=== PATIENT | female | born 1940 | race Caucasian/White ===

== ENCOUNTER 2025-03-22 12:30 | Inpatient (IN) | payer MEDICARE, OTHER ==
[~2025-03-22] VITALS: Ht 162.6 cm; Wt 56.2 kg
[2025-03-22] MEDS ORDERED: NA P133E RC (12:58)
[2025-03-22] MEDS ORDERED: SENN8.6T19 PO (12:58)
[2025-03-22] MEDS ORDERED: DOCU100T2 PO (12:58)
[2025-03-22] MEDS ORDERED: HEPA500034 SQ (12:58)
[2025-03-22] MEDS ORDERED: VALP250C3 PO (12:58)
[2025-03-22] MEDS ORDERED: ATOR20TA PO (12:58)
[2025-03-22] MEDS ORDERED: CARB1TAB33 PO (12:58)
[2025-03-22] MEDS ORDERED: MAGN400T52 PO (12:58)
[2025-03-22] MEDS ORDERED: BISA10SU61 RC (12:58)
[2025-03-22] MEDS ORDERED: POLY17PO4 PO (12:58)
[2025-03-22] MEDS ORDERED: MAGN400O6 PO (12:58)
[2025-03-22] MEDS ORDERED: TRAZ-182 PO (12:58)
[2025-03-22] MEDS ORDERED: ALPR0.255 PO (12:58)
[2025-03-22] MEDS ORDERED: HYDR-4209 PO (12:58)
[2025-03-22] MEDS ORDERED: LIDO1ADH82 TP (12:58)
[2025-03-22] MEDS ORDERED: AMLO-212 PO (12:58)
[2025-03-22] MEDS ORDERED: ACET-2154 PO (12:58)
[2025-03-22] MEDS ORDERED: MELA10TA PO (12:58)
[2025-03-22 13:40] LABS: PLATELET COUNT (AUTO) 503 K/uL (179-408); RED BLOOD CELL COUNT(AUTO) 4.25 MIL/uL (3.63-4.92); RED CELL DISTRIBUTION WIDTH 13.6 % (12.3-17.7); WHITE BLOOD COUNT (AUTO) 8.5 K/uL (3.8-11.8)
[2025-03-22 13:56] LABS: ASPARTATE AMINOTRANSFERASE 33 U/L (15-37); CREATININE 0.6 mg/dL (0.6-1.3); SODIUM SERUM 141 mmol/L (136-145); TOTAL PROTEIN, SERUM 6.7 g/dL (6.4-8.2); UREA NITROGEN, BLOOD 15 mg/dL (7-18)
[2025-03-22 14:04] LABS: ETHANOL < 3 MG/DL (0-10)
[2025-03-22 14:29] LABS: *BILIRUBIN,URIN NEGATIVE (NEGATIVE); *CLARITY,URINE SLIGHTLY CLOUDY (CLEAR); *COLOR,URINE YELLOW (YELLOW); *KETONES,URINE NEGATIVE (NEGATIVE); *PROTEIN,URINE NEGATIVE (NEGATIVE); *UROBILINOGEN,URINE 0.2 E.U./dl (NORMAL); LEUKOCYTE ESTERASE ,URINE 2+ (NEGATIVE); NITRITE, URINE NEGATIVE (NEGATIVE); UGLUCOSE NEGATIVE (NEGATIVE)
[2025-03-22 14:31] LABS: *BLOOD, URINE TRACE (NEGATIVE); SQUAMOUS EPITHELIAL CELL,UR FEW /HPF (NONE SEEN); URINE AMORPHOUS URATE FEW /HPF
[2025-03-22 14:46] LABS: *AMPHETAMINE, URINE NEGATIVE (NEGATIVE); *BARBITURATE, URINE NEGATIVE (NEGATIVE); *BENZODIAZEPINE, URINE NEGATIVE (NEGATIVE); *CANNABINOID, URINE NEGATIVE (NEGATIVE); *COCCAINE, URINE NEGATIVE (NEGATIVE); *OPIATE, URINE POSITIVE (NEGATIVE); *PHENCYCLIDINE SCREEN,URINE NEGATIVE (NEGATIVE); FENTANYL, URINE NEGATIVE (NEGATIVE)
[2025-03-22] MEDS ORDERED: CEFTRIAXONE /D5W 50ML IVPB **ER PYXIS IV ONE (15:17)
[2025-03-22 16:30] VITALS: BP 119/58
[2025-03-22] MEDS ORDERED: ONDANSETRON 4 MG/2 ML VIAL IV PRN (17:15)
[2025-03-22] MEDS ORDERED: FLEET ENEMA 133 ML BOTTLE RC PRN (17:15)
[2025-03-22] MEDS ORDERED: ACETAMINOPHEN 325 MG TABLET-SA PATIENTS-PAIN ONLY PO PRN (17:15)
[2025-03-22] MEDS ORDERED: MAGNESIUM HYDROXIDE 30 ML LIQUID UDC PO PRN (17:15)
[2025-03-22] MEDS ORDERED: SENNOSIDES 1 TABLET PO PRN (17:15)
[2025-03-22] MEDS ORDERED: HYDROCODONE/APAP 5-325MG TABLET PO PRN (17:15)
[2025-03-22 18:38] VITALS: BP 137/52; TEMP 97.8; O2SAT 97
[2025-03-22] MEDS: IV NS 1000 ML 1,000 ML IV PRN (19:03)
[2025-03-22 19:25] VITALS: BP 118/45; TEMP 98; O2SAT 98
[2025-03-22] MEDS: ATORVASTATIN 20 MG TABLET PO SCH (20:52)
[2025-03-22] MEDS: HEPARIN SODIUM,PORCINE 5,000 UNITS/ML VIAL SQ SCH (20:56)
[2025-03-22] MEDS: TRAZODONE 50 MG TABLET PO PRN (21:01)
[2025-03-23 06:09] VITALS: BP 135/48; TEMP 97.5; O2SAT 98
[2025-03-23] MEDS: PANTOPRAZOLE SODIUM 40 MG TABLET.DR PO SCH (06:36)
[2025-03-23 07:15] LABS: PLATELET COUNT (AUTO) 462 K/uL (179-408); RED BLOOD CELL COUNT(AUTO) 4.20 MIL/uL (3.63-4.92); RED CELL DISTRIBUTION WIDTH 13.8 % (12.3-17.7); WHITE BLOOD COUNT (AUTO) 6.6 K/uL (3.8-11.8)
[2025-03-23 07:33] LABS: CREATININE 0.6 mg/dL (0.6-1.3); SODIUM SERUM 140 mmol/L (136-145); UREA NITROGEN, BLOOD 14 mg/dL (7-18)
[2025-03-23] MEDS: CARBIDOPA/LEVODOPA 25-100MG TABLET PO SCH (08:43)
[2025-03-23] MEDS: ALPRAZOLAM 0.25 MG TABLET PO SCH (08:43)
[2025-03-23] MEDS: DOCUSATE SODIUM 100 MG CAPSULE PO SCH (08:43)
[2025-03-23] MEDS: VALPROIC ACID 250 MG CAPSULE PO SCH (08:44)
[2025-03-23] MEDS: AMLODIPINE 5 MG TABLET PO SCH (08:51)
[2025-03-23] MEDS: MIRALAX 17 GM POWD.PACK PO SCH (08:51)
[2025-03-23] MEDS ORDERED: Medication Not On Formulary EA (Magnesium Oxide 400 MG) PO SCH (09:00)
[2025-03-23] MEDS ORDERED: MAGNESIUM OXIDE 400 MG TABLET PO SCH ×2 (09:00)
[2025-03-23] MEDS: LIDOCAINE 5% PATCH TD SCH (09:00)
[2025-03-23 11:54] VITALS: BP 119/48; TEMP 97.8; O2SAT 98
[2025-03-23 15:50] VITALS: BP 106/49; TEMP 97.7; O2SAT 98
[2025-03-23 17:53] VITALS: BP 121/57
[2025-03-23 19:00] VITALS: BP 114/43; TEMP 97.5; O2SAT 95
[2025-03-23] MEDS: MELATONIN 3 MG TABLET PO SCH (20:15)
[2025-03-24] MEDS: ACETAMINOPHEN 325 MG TABLET PO PRN (02:12)
[2025-03-24 04:00] VITALS: BP 149/58; TEMP 97.6; O2SAT 96
[2025-03-24 07:13] LABS: PLATELET COUNT (AUTO) 466 K/uL (179-408); RED BLOOD CELL COUNT(AUTO) 4.07 MIL/uL (3.63-4.92); RED CELL DISTRIBUTION WIDTH 13.5 % (12.3-17.7); WHITE BLOOD COUNT (AUTO) 9.8 K/uL (3.8-11.8)
[2025-03-24 07:27] LABS: CREATININE 0.6 mg/dL (0.6-1.3); SODIUM SERUM 143 mmol/L (136-145); UREA NITROGEN, BLOOD 16 mg/dL (7-18)
[2025-03-24] MEDS: HYDROCODONE/APAP 5-325MG TABLET PO PRN (09:40)
[2025-03-24 12:03] VITALS: BP 143/50; TEMP 98; O2SAT 97
[2025-03-24 15:10] VITALS: BP 116/50; TEMP 97.9; O2SAT 97
[2025-03-24 19:15] VITALS: BP 144/55; TEMP 98.2; O2SAT 94
[2025-03-25 06:21] VITALS: BP 160/52; TEMP 98.8; O2SAT 96
[2025-03-25 06:36] VITALS: BP 149/58; TEMP 98.8; O2SAT 96
[2025-03-25 06:38] LABS: PLATELET COUNT (AUTO) 394 K/uL (179-408); RED BLOOD CELL COUNT(AUTO) 4.13 MIL/uL (3.63-4.92); RED CELL DISTRIBUTION WIDTH 14.1 % (12.3-17.7); WHITE BLOOD COUNT (AUTO) 8.6 K/uL (3.8-11.8)
[2025-03-25 07:09] LABS: CREATININE 0.7 mg/dL (0.6-1.3); SODIUM SERUM 142 mmol/L (136-145); UREA NITROGEN, BLOOD 13 mg/dL (7-18)
[2025-03-25] MEDS: MAGNESIUM HYDROXIDE 30 ML LIQUID UDC PO PRN (08:23)
[2025-03-25 09:46] VITALS: BP 168/70
[2025-03-25 10:01] VITALS: BP 125/53
[2025-03-25] MEDS ORDERED: CEPH500C2 PO ×2 (10:48)
[2025-03-25 11:01] VITALS: BP 122/78; TEMP 97.9; O2SAT 95
[2025-03-25 14:46] VITALS: BP 139/61; TEMP 98; O2SAT 95
[2025-03-25] MEDS: BISACODYL 10 MG SUPP.RECT RC PRN (15:35)
== END 2025-03-25 15:45 | DRG 689 ==
LOC: ER 12:30 → MEDSURG3 18:03
PROVIDERS: ADMIT Nurse Practitioner Family; ATTEND Nurse Practitioner Family
DX: N13.6 Pyonephrosis (principal); G93.41 Metabolic encephalopathy; E44.1 Mild protein-calorie malnutrition; F02.811 Dementia in other diseases classified elsewhere, unspecified severity, with agitation; M48.54XA Collapsed vertebra, not elsewhere classified, thoracic region, initial encounter for fracture; E88.09 Other disorders of plasma-protein metabolism, not elsewhere classified; M48.04 Spinal stenosis, thoracic region; B96.89 Other specified bacterial agents as the cause of diseases classified elsewhere; G20.A1 Parkinson's disease without dyskinesia, without mention of fluctuations; I10 Essential (primary) hypertension; I35.0 Nonrheumatic aortic (valve) stenosis; M48.56XA Collapsed vertebra, not elsewhere classified, lumbar region, initial encounter for fracture; F02.83 Dementia in other diseases classified elsewhere, unspecified severity, with mood disturbance; F02.818 Dementia in other diseases classified elsewhere, unspecified severity, with other behavioral disturbance; Z68.21 Body mass index [BMI] 21.0-21.9, adult; E78.5 Hyperlipidemia, unspecified; R73.9 Hyperglycemia, unspecified; R13.10 Dysphagia, unspecified; M51.369 Other intervertebral disc degeneration, lumbar region without mention of lumbar back pain or lower extremity pain; M48.061 Spinal stenosis, lumbar region without neurogenic claudication
CPT/HCPCS: 36415; 70450; 72131; 83735; 84100; 85025; 87077; 87086; A4606; A4663; A6213; C1758; G0378; G0480; J0696; J1644; J7040